=== PATIENT | male | born 1955 ===

== ENCOUNTER → 2017-05-18 | Day surgery (SDC) | payer OTHER ==
[~2017-05-18] MED LIST: ceFAZolin 1 GM in Sodium Chloride 0.9% 100 ML IVPB ONE; ceFAZolin IV 1 gm in Dextrose 1 GM/50 ML BAG IVPB ONE
[2017-05-18 10:48] VITALS: BMI 31.6
--- NOTE | 2017-05-18 15:11 | OP ---
PROCEDURE DATE: 05/18/2017 DIAGNOSTIC CEREBRAL ANGIOGRAM REFERRING PHYSICIAN: Luis Eduardo Holland MD PERFORMING SURGEON: Jay Go MD HULL OUTFIT SUPERVISOR: Traci Swann, neurointerventional technologist. BRIEF HISTORY: The patient is a 61-year-old male who came to the hospital with signs and symptoms suggestive of vertebrobasilar insufficiency. Noninvasive vascular imaging demonstrated two angiographic abnormalities, 1. 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 2. 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 Given the fact that the patient still persisted with symptoms despite being on dual-antiplatelet therapy, his symptoms were most notable for left and right non-extinguishing nystagmus when the head was lifted from flat to 30 degrees. After a long conversation with the treating neurologist and discussing with the patient, it was decided to proceed towards diagnostic cerebral angiography to better define and delineate the angio architectural examiner of this patient's intracranial circulation, get a better sense of the morphology and analogy of the previously described vascular lesions. I explained to the patient the risks of this procedure, include but not limited to allergic reaction, renal damage, contrast reaction, complications, bleeding, hemorrhagic nerve damage and the possibility of stroke, which could leave him with severe permanent disability. The patient understood and with the use of an bridge gang worker, we further reviewed these and informed consent was obtained. ANESTHESIA: Local. DESCRIPTION OF PROCEDURE: The patient was brought to the cardiac catheterization laboratory. The patient was prepped as per the normal protocol with the sterile drape and chlorhexidine applied to both groins. Lidocaine was given as 10 mL into the right groin after using normal anatomic landmarks to find the region of the common femoral artery. The area was palpated. A 5 inch micropuncture tube was used to access the artery and a 6-Dominican short femoral sheath was placed in the right flank. Sheath was intermittently flushed with heparinized saline. At this point, the patient was given 2000 units IV heparin. All injections were done using a 5-Dominican Charanjit diagnostic catheter with a double flush technique. All images were acquired at the end of fluoroscopic visualization and road mapping. DIAGNOSTIC ANGIOGRAPHY: Left vertebral artery cervical views: The origin of the left vertebral artery was carefully catheterized. Injections were performed in cervical projections. These injections demonstrated normal caliber of the vertebral artery in both extra and intracranial sections. There was good flow into a robust flowing basilar with opacification of bilateral multi disciplined language analyst. LEFT VERTEBRAL ARTERY INTRACRANIAL VIEWS: Intracranial projections were obtained using AP and lateral projections for the left vertebral artery. Injection demonstrated normal angio architecture of the left vertebral artery, again noted there is no evidence of flow-inhibiting stenosis or vessel aberrancy. There was robust filling of the basilar artery which empties out into interspace which filled bilaterally superior cerebellar arteries. A left PICA is visualized as well as a left RATE ANALYST. There is no filling of the right RATE ANALYST territory seen in these injections. No aneurysm nor arterial venous malformation is seen. Venous space is grossly normal. LEFT SUBCLAVIAN ARTERY: Injection of the left subclavian artery performed in AP view demonstrates normal angio architecture of the left subclavian artery, identified on the transverse cervical trunk as well as the left internal mammary artery. There is no evidence of severe stenosis at the origin of the left vertebral artery. Injections of the right common carotid artery performed in AP and lateral cervical views and these demonstrated no evidence of high-grade or flow-limiting stenosis at the origin of the internal carotid artery. These branches of the right external carotid artery are normal. Minor irregularities seen at the origin of the right common carotid artery, this is not flow limiting. RIGHT INTERNAL CAROTID ARTERY INTRACRANIAL PROJECTIONS: Intracranial projections were performed in AP and lateral orientations as well as in magnified oblique of the intracranial circulation from the right internal carotid artery. These injections demonstrated normal luminal character of the right internal carotid artery as well the right MCA can be seen filling briskly with all of the distal vasculature. 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 There is an absent A1 and no contribution to the intracranial anterior cerebral artery system from this injection. Identified is also the anterior carotid artery and the ophthalmic artery. In the supraclinoid region, there is also identified a broad-based aneurysm measuring approximately 3.7 mm x 3 mm and was diagonal in dimension. No other vascular abnormality was seen. Venous changes were normal. INJECTIONS OF THE RIGHT SUBCLAVIAN ARTERY: Injections of the right subclavian artery were performed in AP views. They demonstrated normal architecture of the subclavian artery without any vessel aberrancy. Visualized the right paracervical and costocervical trunks. There is no definitively filling right vertebral artery, all vessels that traveled superiorly from these injections in the region of the vertebral canal; however, it might represent muscular branches. Further, they exhibit no appreciable section with the intracranial circulation. LEFT INTERNAL CAROTID ARTERY: Injections of the left internal carotid artery was performed in AP and lateral intracranial projections demonstrated opacification of the left MCA territory and also distal branches as well as filling of those ACAs crossing a robust ACOM. Further identified are a small atretic posterior communicating artery and ophthalmic artery. The left anterior carotid artery was small and difficult to visualize, however, I do believe it is seen opacifying in sequence 17. No evidence of aneurysms nor vascular abnormalities. Venous drainage is normal. RIGHT FEMORAL ARTERY: Right femoral arteriography was performed, this demonstrated a puncture site and a common femoral artery proximal to the bifurcation. This puncture site is acceptable for placement of an Angio-Seal vascular closure device. All catheters and sheaths and wires were removed. A 6-Dominican Angio-Seal vascular closure device was deployed in the right common femoral artery to achieve hemostasis. No hematoma. No complications with deployment. COMPLICATIONS: None. The patient tolerated the procedure well, he was hemodynamically stable throughout the procedure with no focal neurological deficits immediately after. IMPRESSION: 1. 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 This aneurysm was broad based. 2. No evidence of significant vertebrobasilar stenosis. No evidence to suggest on this angiogram of any lesions amicable to further intervention. 3. I discussed the results of these studies with the treating neurologist and I recommend continued maximal medical management for this patient. The patient is to follow up with me in the office in approximately two weeks, and we will discuss these options, we will also need noninvasive follow up of the previously described aneurysm. If you have any questions or concerns, please feel free to call me at any time. Jay Go MD
== END | disposition home or self-care (01) ==
LOC: C.CATHLAB 10:35
PROVIDERS: ATTEND Psychiatry & Neurology Vascular Neurology
DX: I67.1 Cerebral aneurysm, nonruptured (principal)
CPT/HCPCS: 36224; 36225; 82948; C1760; C1769; C1894; J0690; J1644; Q9967